=== PATIENT | male | born 1940 | race Hispanic/Latino ===

== ENCOUNTER 2016-12-06 09:14 | Emergency (ER) | payer MEDICARE, OTHER ==
[2016-12-06 09:53] VITALS: RESP 18; O2SAT 99
--- NOTE | 2016-12-06 10:22 | ED PDOC ---
HPI: Chest Pain Time Seen by Provider: 12/06/16 09:25 Chief Complaint (Nursing): Chest Pain Chief Complaint (Provider): Chest Pain History Per: Patient History/Exam Limitations: no limitations Onset/Duration Of Symptoms: Hrs (approximately 6 hours prior to arrival) Current Symptoms Are (Timing): Still Present Severity: Moderate Associated Symptoms: Nausea (mild). denies: Dyspnea, Diaphoresis, Other ( dizziness) Modifying Factors: None Exacerbating Factors: None Alleviating Factors: None Additional Complaint(s): Keegan Mathews is a 75 year old male, with a past medical history of hypertension, hypercholesterolemia, and gastroesophageal reflux disease, who presents to the emergency department for the evaluation of epigastric and lower chest pain, radiating to his left shoulder, that the patient has been experiencing for approximately 6 hours. Patient has had similar symptoms to prior history of acid reflux; however, radiation to left shoulder is new. Associated mild nausea is currently present. Denies shortness of breath, dizziness, or diaphoresis. Of note, patient denies recent cardiac workups and has had a stress test many years ago. PMD: [facility] in [place] Past Medical History Reviewed: Historical Data, Nursing Documentation, Vital Signs Vital Signs: Last Vital Signs Temp Pulse 57 L 12/06/16 15:44 Resp 18 12/06/16 15:44 BP 142/70 12/06/16 15:44 Pulse Ox 99 12/06/16 15:44 - Medical History PMH: GERD, HTN, Hypercholesterolemia - Surgical History Other surgeries: Ileostomy - Family History Family History: States: No Known Family Hx - Home Medications Home Medications: Ambulatory Orders Medication Instructions Recorded Allopurinol [Zyloprim] 300 mg PO DAILY 12/06/16 Aspirin [Aspirin Chewable] 81 mg PO DAILY 12/06/16 Atenolol [Tenormin] 50 mg PO DAILY 12/06/16 Cyanocobalamin (Vitamin B-12) 2,500 mcg SL DAILY 12/06/16 [B-12] Omeprazole Magnesium [Prilosec Otc] 20 mg PO DAILY 12/06/16 Ranitidine HCl [Zantac 75] 75 mg PO DAILY PRN 12/06/16 Simvastatin 40 mg PO DAILY 12/06/16 amLODIPine [Norvasc] 10 mg PO DAILY 12/06/16 - Allergies Allergies/Adverse Reactions: Allergies Allergy/AdvReac Type Severity Reaction Status Date / Time No Known Allergies Allergy Verified 12/06/16 09:35 Review of Systems ROS Statement: Except As Marked, All Systems Reviewed And Found Negative Constitutional: Negative for: Sweats Cardiovascular: Positive for: Chest Pain Respiratory: Negative for: Shortness of Breath Gastrointestinal: Positive for: Nausea (mild), Abdominal Pain (epigastric pain) Musculoskeletal: Positive for: Shoulder Pain (L shoulder) Neurological: Negative for: Dizziness Physical Exam - Reviewed Nursing Documentation Reviewed: Yes Vital Signs Reviewed: Yes - Physical Exam Appears: Positive for: Non-toxic, No Acute Distress Head Exam: Positive for: ATRAUMATIC, NORMOCEPHALIC Skin: Positive for: Normal Color, Warm, Dry Eye Exam: Positive for: Normal appearance, EOMI Cardiovascular/Chest: Positive for: Regular Rate, Rhythm. Negative for: Murmur Respiratory: Positive for: Normal Breath Sounds. Negative for: Respiratory Distress Gastrointestinal/Abdominal: Positive for: Normal Exam, Soft. Negative for: Tenderness Back: Positive for: Normal Inspection. Negative for: L CVA Tenderness, R CVA Tenderness, Vertebral Tenderness Extremity: Positive for: Normal ROM. Negative for: Tenderness Neurologic/Psych: Positive for: Alert, Oriented - Laboratory Results Result Diagrams: 12/06/16 10:30 12/06/16 10:30 - ECG ECG Rhythm: Positive for: Normal QRS, Sinus Bradycardia. Negative for: ST/T Changes Rate: 57 O2 Sat by Pulse Oximetry: 99 (RA) Pulse Ox Interpretation: Normal - Radiology X-Ray: Interpreted by Me, Viewed By Me, Read By Radiologist X-Ray Interpretation: No Acute Disease - CT Scan/US Abdomen US Other Rad Studies (CT/US): Interpreted By Me, Read By Radiologist, Radiology Report Reviewed Medical Decision Making Medical Decision Makin:25 Initial Impression: Chest pain r/o ACS versus acid reflux Initial Plan: * Abdomen Ultrasound * Chest X-Ray * EKG * CBC * CMP * Troponin I * Lipase * Reevaluation 10:17 EKG read at a rate of 57 with Sinus Bradycardia, No ST/T Changes, Normal QRS labs unremarkable other than mild dehydration. WBC and LFTs were normal. 10:48 Chest X-Ray Results FINDINGS: LUNGS: Minor hyperinflation is seen. No focal alveolar infiltrate is noted. PLEURA: No significant pleural effusion identified. No pneumothorax apparent. CARDIOVASCULAR: Aorta is uncoiled. Heart is normal in size. OSSEOUS STRUCTURES: No significant abnormalities. VISUALIZED UPPER ABDOMEN: Normal. OTHER FINDINGS: None. IMPRESSION: No active disease. 12:29 Abdomen Ultrasound Results FINDINGS: LIVER: Measures 14.9 cm in length. Diffuse increased echogenicity of the liver parenchyma. This is consistent with fatty infiltration. No focal liver mass or intrahepatic ductal dilatation was seen. GALLBLADDER: There is a small gallstone within the gallbladder measuring 15 millimeters x 7 millimeters x 6 millimeters. No gallbladder wall thickening and/or pericholecystic fluid was seen. No sonographic Malhotra's sign was elicited. COMMON BILE DUCT: Measures for mm. No stones. No dilatation. PANCREAS: Pancreas not evaluated due to overlying bowel gas. RIGHT KIDNEY: Measures 9 cm in length. Normal echogenicity. No calculus, mass, or hydronephrosis. AORTA: Proximal and distal abdominal aorta were not adequately evaluated due to overlying bowel gas. Mid abdominal aorta has maximal diameter of 2.2 centimeters. IVC: Unremarkable. OTHER FINDINGS: None. IMPRESSION: Small gallstone. No ultrasound evidence of acute cholecystitis. Fatty infiltration of the liver. Limited evaluation due to overlying bowel gas. pt felt better in ED and wished to be discharged. Followup PMD/ GI/ surgery as directed. Return ER for any new or worsening symptoms. Scribe Attestation: Documented by Asif Lange, acting as a scribe for Keegan Cat III, MD. Provider Scribe Attestation: All medical record entries made by the Scribe were at my direction and personally dictated by me. I have reviewed the chart and agree that the record accurately reflects my personal performance of the history, physical exam, medical decision making, and the department course for this patient. I have also personally directed, reviewed, and agree with the discharge instructions and disposition. Disposition - Clinical Impression Clinical Impression: Chest pain Counseled Patient/Family Regarding: Studies Performed, Diagnosis, Need For Followup - Disposition Disposition: Routine/Home Disposition Time: 15:00 Condition: STABLE Additional Instructions: Case discussed with Dr Mcdonald of [facility] to expect full cardiac workup within next 48hours in [place]. Admission to [facility] offered and declined. Return to any ER for any return of chest pain, shortness of breath, weakness, sweating or dizziness. Avoid heavy exertion or exercise until seen and cleared by your doctor. Discuss potential further testing for gallstone discovered on ultrasound. Instructions: Chest Pain (ED), Gallstones (ED)
[2016-12-06 10:36] VITALS: PULSE 57
[2016-12-06 10:37] LABS: BASO # 0.1 K/uL (0.0-0.2); BASO % 0.8 % (0.0-2.0); EOS # 0.1 K/uL (0.0-0.7); EOS % 1.4 % (0.0-4.0); LYMPH # 1.2 K/uL (1.0-4.3); LYMPH % 20.3 % (20.0-40.0); MEAN CELL VOLUME 99.5 fl (80.0-94.0); MEAN CORPUSCULAR HEMOGLOBIN 34.2 pg (27.0-31.0); MEAN CORPUSCULAR HGB CONC 34.4 g/dL (33.0-37.0); MEAN PLATELET VOLUME 7.5 fl (7.2-11.7); MONO # 0.7 K/uL (0.0-0.8); MONO % 11.7 % (0.0-10.0); NEUT % 65.8 % (50.0-75.0); NRBC % 0.1 % (0.0-0.0); RED CELL DISTRIBUTION WIDTH 13.3 % (11.5-14.5); WHITE BLOOD COUNT 6.1 K/uL (4.8-10.8)
--- NOTE | 2016-12-06 10:50 | RAD ---
HISTORY: chest pain COMPARISON: No prior. TECHNIQUE: Chest PA and lateral FINDINGS: LUNGS: Minor hyperinflation is seen. No focal alveolar infiltrate is noted. PLEURA: No significant pleural effusion identified. No pneumothorax apparent. CARDIOVASCULAR: Aorta is uncoiled. Heart is normal in size. OSSEOUS STRUCTURES: No significant abnormalities. VISUALIZED UPPER ABDOMEN: Normal. OTHER FINDINGS: None. IMPRESSION: No active disease.
[2016-12-06 11:01] LABS: ALB/GLOB RATIO 1.5 (1.0-2.1); ALKALINE PHOSPHATASE 73 U/L (38-126); ALT/SGPT 36 U/L (21-72); AST/SGOT 32 U/L (17-59); BILIRUBIN,TOTAL 1.5 mg/dl (0.2-1.3); BLOOD UREA NITROGEN 29 mg/dl (9-20); CALCIUM 10.3 mg/dL (8.4-10.2); CARBON DIOXIDE 24 mmol/L (22-30); CHLORIDE 106 mmol/L (98-107); GFR AFRICAN-AMERICAN > 60; GLUCOSE,RANDOM 97 mg/dL (75-110); LIPASE 158 U/L (23-300); POTASSIUM 4.1 MMOL/L (3.6-5.0); SODIUM 145 mmol/l (132-148); TOTAL PROTEIN 7.6 G/DL (6.3-8.2)
--- NOTE | 2016-12-06 12:30 | US ---
HISTORY: RUQ eval GB, aorta, R kidney, pancreas COMPARISON: None. TECHNIQUE: Sonographic evaluation of the right upper quadrant of the abdomen. FINDINGS: LIVER: Measures 14.9 cm in length. Diffuse increased echogenicity of the liver parenchyma. This is consistent with fatty infiltration. No focal liver mass or intrahepatic ductal dilatation was seen. GALLBLADDER: There is a small gallstone within the gallbladder measuring 15 millimeters x 7 millimeters x 6 millimeters. No gallbladder wall thickening and/or pericholecystic fluid was seen. No sonographic Malhotra's sign was elicited. COMMON BILE DUCT: Measures for mm. No stones. No dilatation. PANCREAS: Pancreas not evaluated due to overlying bowel gas. RIGHT KIDNEY: Measures 9 cm in length. Normal echogenicity. No calculus, mass, or hydronephrosis. AORTA: Proximal and distal abdominal aorta were not adequately evaluated due to overlying bowel gas. Mid abdominal aorta has maximal diameter of 2.2 centimeters. IVC: Unremarkable. OTHER FINDINGS: None . IMPRESSION: Small gallstone. No ultrasound evidence of acute cholecystitis. Fatty infiltration of the liver. Limited evaluation due to overlying bowel gas.
[2016-12-06 15:46] VITALS: BP 142/70
--- NOTE | 2016-12-07 08:55 | CARD ---
APPROVED REPORT EKG Measurement Heart [id number] <Conclusion> Sinus bradycardia Otherwise normal ECG
--- NOTE | 2016-12-07 08:56 | CARD ---
APPROVED REPORT EKG Measurement Heart [id number] [id number] <Conclusion> Sinus bradycardia Minimal voltage criteria for LVH, may be normal variant Borderline ECG
== END 2016-12-06 15:17 | disposition home or self-care (01) ==
LOC: H.ER 09:14
DX: K80.20 Calculus of gallbladder without cholecystitis without obstruction (principal); K76.0 Fatty (change of) liver, not elsewhere classified; R07.9 Chest pain, unspecified; R11.0 Nausea; I10 Essential (primary) hypertension; K21.9 Gastro-esophageal reflux disease without esophagitis; R00.1 Bradycardia, unspecified